=== PATIENT | female | born 1955 | race Caucasian/White ===

== ENCOUNTER 2022-08-30 19:51 | Emergency (ER) | payer MEDICARE, MEDICAID ==
[~2022-08-30] VITALS: Ht 173 cm; Wt 73.9 kg
[2022-08-30 19:55] VITALS: BP 218/99
--- NOTE | 2022-08-30 20:12 | ED General ---
General Chief Complaint: General Problems/Pain Stated Complaint: N/V/D Source of Information: Patient Exam Limitations: No Limitations History of Present Illness Date Seen by Provider: Aug 30, 2022 Time Seen by Provider: 20:00 Initial Comments 67-year-old female presents the emergency department today requesting refill of oxycodone 10 mg which she takes for chronic pain. She states she just moved to the area from [facility] and has not established care here yet. She last took her pain medicine this morning. Pain is chronic in her back and neck region for at least 5 years and unchanged. Allergies and Home Medications Patient Home Medication List Home Medication List Reviewed: Yes Review of Systems Review of Systems Constitutional: other (Chronic back and neck pain) EENTM: no symptoms reported Respiratory: no symptoms reported Cardiovascular: no symptoms reported Gastrointestinal: no symptoms reported Genitourinary: no symptoms reported Musculoskeletal: no symptoms reported Skin: no symptoms reported Psychiatric/Neurological: No Symptoms Reported Hematologic/Lymphatic: No Symptoms Reported Immunological/Allergic: no symptoms reported Past Cdenkjg-Nhnjlp-Ecbftv Hx Patient Social History Tobacco Use?: Yes Use of E-Cig and/or Vaping dev: No Substance use?: No Alcohol Use?: No Family Medical History Reviewed Nursing Family Hx No Pertinent Family Hx Physical Exam Vital Signs Vital Signs - First Documented 08/30/22 19:55 Temp 36.3 Pulse 108 Resp 16 B/P (MAP) 218/99 (138) Capillary Refill : Height, Weight, BMI Height: '" Weight: lbs. oz. kg; BMI Method: General Appearance: No Apparent Distress, WD/WN HEENT: PERRL/EOMI, Normal ENT Inspection, Pharynx Normal Neck: Full Range of Motion, Non Tender, Supple Respiratory: Chest Non Tender, Lungs Clear, Normal Breath Sounds, No Accessory Muscle Use, No Respiratory Distress Cardiovascular: Regular Rate, Rhythm, No Edema, No Gallop, No JVD, No Murmur, Normal Peripheral Pulses, Other (hypertension) Gastrointestinal: Normal Bowel Sounds, No Organomegaly, No Pulsatile Mass, Non Tender, Soft Extremity: Normal Capillary Refill, Normal Inspection, Non Tender, No Calf Tenderness Neurologic/Psychiatric: Alert, Oriented x3 Skin: Normal Color, Warm/Dry Progress/Results/Core Measures Suspected Sepsis SIRS Temperature: Pulse: Respiratory Rate: Blood Pressure / Mean: Results/Orders Vital Signs/I&O 08/30/22 19:55 Temp 36.3 Pulse 108 Resp 16 B/P (MAP) 218/99 (138) Capillary Refill : Departure Communication (Admissions) Patient is hemodynamically stable onset of hypertension. She states she has been taking losartan but missed the dose today. She does have an empty oxyco done bottle here last filled on 07/26/2022. Advised her mother willing to refill chronic pain medications from the emergency department. She seems okay with this mildly the room she starts yelling and slamming doors, cussing. Concern for drug-seeking behavior at this point. Advised her she would need to establish care with primary care provider and likely panel edge painter in the area for further refills of these medications and that we will be on able to do so from the emergency department. She states understanding. Impression Primary Impression: Chronic pain Qualified Codes: G89.29 - Other chronic pain Additional Impression: Drug-seeking behavior Disposition: HOME, SELF-CARE Condition: Stable Departure-Patient Inst. Add. Discharge Instructions: We are unable to refill your chronic pain medications from the emergency d epartment. I recommend you follow-up with the [facility]. If this is where you currently have your appointment I recommend you calling daily to see if they can get you in sooner or have any cancellations. Return to the emergency department for any severe concerns. Follow-up with your primary doctor for any nonemergent needs. All discharge instructions reviewed with patient and/or family. Voiced understanding. DENISE REYNOSO DO Aug 30, 2022 20:12
== END 2022-08-30 20:20 | disposition home or self-care (01) ==
LOC: ER FS 19:53
DX: G89.29 Other chronic pain (principal); Z76.0 Encounter for issue of repeat prescription; I10 Essential (primary) hypertension; T46.5X6A Underdosing of other antihypertensive drugs, initial encounter; Z91.138 Patient's unintentional underdosing of medication regimen for other reason; Z76.5 Malingerer [conscious simulation]
CPT/HCPCS: 99285

== ENCOUNTER 2022-09-09 17:46 | Emergency (ER) | payer MEDICAID, MEDICARE ==
[~2022-09-09] VITALS: Ht 172.7 cm; Wt 77.1 kg
--- NOTE | 2022-09-09 18:23 | Diagnostic Imaging Report ---
PROCEDURE: CT abdomen and pelvis without contrast. TECHNIQUE: Multiple contiguous axial images were obtained through the abdomen and pelvis without the use of intravenous contrast. Auto Exposure Controls were utilized during the CT exam to meet ALARA standards for radiation dose reduction. INDICATION: Right groin pain. COMPARISON: None. FINDINGS: The heart is unremarkable. The lung bases are clear. A cyst is seen in the mid left kidney measuring 2.9 cm. No hydronephrosis or renal calculi. The urinary bladder is nondistended. The liver, spleen, pancreas and adrenal glands have a normal noncontrast CT appearance. The gallbladder is surgically absent. There is no pathologically enlarged mesenteric or retroperitoneal adenopathy. The bowel loops are nondilated. Scattered diverticula are seen in the descending and sigmoid colon without evidence of acute diverticulitis. There is no free fluid or free air. No acute osseous abnormalities. Prior kyphoplasty changes are seen at T12. There is calcified aortic and iliac atherosclerotic plaque without aneurysm. Ureters and bladder are normal. There is no free air, loculated collection, or adenopathy in the pelvis. IMPRESSION: 1. No acute abnormalities in the abdomen and pelvis. No bowel obstruction, free fluid, or free air. 2. Scattered diverticula in the descending and sigmoid colon without evidence of acute diverticulitis. Dictated by: Dictated on workstation # [id number]
[2022-09-09] MEDS ORDERED: FAMOTIDINE 20MG/2ML IV (PEPCID) IVP ONE (18:30)
[2022-09-09] MEDS ORDERED: KETOROLAC 30 MG/ML VIAL IVP ONE (18:30)
[2022-09-09] MEDS ORDERED: ONDANSETRON 4 MG/2 ML (SDV) Z0FRAN IVP ONE (18:30)
[2022-09-09] MEDS ORDERED: NS IV 1000 ML 1,000 ML IV SCH (18:30)
[2022-09-09 18:45] LABS: BASOPHILS % (AUTO) 0 % (0-10); EOSINOPHILS # (AUTO) 0.1 10^3/uL (0.0-0.3); EOSINOPHILS % (AUTO) 1 % (0-10); HEMATOCRIT 44 % (35-52); HEMOGLOBIN 15.4 g/dL (11.5-16.0); LYMPHOCYTES # (AUTO) 3.9 10^3/uL (1.0-4.0); LYMPHOCYTES % (AUTO) 36 % (12-44); MEAN CORPUSCULAR HEMOGLOBIN 31 pg (25-34); MEAN CORPUSCULAR HGB CONC 35 g/dL (32-36); MEAN CORPUSCULAR VOLUME 87 fL (80-99); MEAN PLATELET VOLUME 10.4 fL (9.0-12.2); MONOCYTES # (AUTO) 0.7 10^3/uL (0.0-1.0); MONOCYTES % (AUTO) 7 % (0-12); NEUTROPHILS # (AUTO) 6.2 10^3/uL (1.8-7.8); NEUTROPHILS % (AUTO) 56 % (42-75); PLATELET COUNT 308 10^3/uL (130-400); WHITE BLOOD COUNT 11.1 10^3/uL (4.3-11.0)
[2022-09-09 18:46] LABS: COLOR,URINE YELLOW; GLUCOSE, URINE (UA) NEGATIVE (NEGATIVE); KETONES,URINE 1+ (NEGATIVE); LEUKOCYTE ESTERASE ,URINE NEGATIVE (NEGATIVE); NITRITE,URINE NEGATIVE (NEGATIVE); PROTEIN,URINE 1+ (NEGATIVE)
[2022-09-09 18:50] LABS: BACTERIA,URINE LARGE /HPF; BILIRUBIN,URINE 1+ (NEGATIVE); CLARITY,URINE CLOUDY; SQUAMOUS EPITHELIAL CELL,UR >50 /HPF
[2022-09-09 18:59] LABS: AMPHETAMINE SCREEN, URINE NEGATIVE (NEGATIVE); BARBITURATE SCREEN URINE NEGATIVE (NEGATIVE); BENZODIAZEPINES SCREEN URINE NEGATIVE (NEGATIVE); CANNABINOID SCREEN, URINE POSITIVE (NEGATIVE); COCAINE SCREEN URINE NEGATIVE (NEGATIVE); METHADONE STAT NEGATIVE (NEGATIVE); OPIATE SCREEN URINE NEGATIVE (NEGATIVE); OXYCODONE STAT NEGATIVE (NEGATIVE); PROPOXYPHENE STAT NEGATIVE (NEGATIVE); TRICYCLIC ANTIDEPRESSANTS SCRE NEGATIVE (NEGATIVE)
[2022-09-09 19:06] LABS: ALBUMIN 4.5 GM/DL (3.2-4.5); BILIRUBIN,TOTAL 0.6 MG/DL (0.1-1.0); CALCIUM 9.8 MG/DL (8.5-10.1); CREATININE SERUM 0.87 MG/DL (0.60-1.30); TOTAL PROTEIN 7.2 GM/DL (6.4-8.2)
--- NOTE | 2022-09-09 19:52 | ED Abdominal Pain ---
General Chief Complaint: Abdominal/GI Problems Stated Complaint: FEET/LEG PAIN,VOMITTING Nursing Triage Note: Patient reports she saw a paint and table edger in [place] for chronic back pain. She reports she recently moved here and ran out of her oxycodone prescription on August 27. She states she began having diarrhea, sweating, nausea, vomiting, and abdominal pain on August 28 and is still having these symptoms. She states she feel dehydrated and has not had any urine output for 12 hours. Source of Information: Patient Exam Limitations: No Limitations History of Present Illness Date Seen by Provider: Sep 09, 2022 Time Seen by Provider: 17:45 Initial Comments Patient is a 67-year-old female with neuropathy and chronic pain who states she is currently withdrawing from oxycodone after taking her last dose approximately 2 weeks ago. Patient reports nausea vomiting diarrhea sweating and abdominal cramping. She states the symptoms have gradually improved but she continues to feel dehydrated and lightheaded upon standing. She denies fever chills, sweats. She denies chest pain palpitations, shortness of breath or other cardiac equivalent. No hematemesis coffee-ground emesis melena hematochezia. No urinary frequency urgency or dysuria. Patient was able to establish with a PCP and has set up appointment in 2 weeks. She is also off all of her psychiatric medications. Denies drugs or alcohol with the exception of marijuana. Timing/Duration: Other Severity/Quality: Other Location: Other Radiation: Other Activities at Onset: Other Modifying Factors: Improves With Other Associated Symptoms: Other Allergies and Home Medications Allergies Coded Allergies: acetaminophen (Verified Allergy, Unknown, rash, 09/09/22) Patient Home Medication List Home Medication List Reviewed: Yes Review of Systems Review of Systems Constitutional: see HPI EENTM: See HPI Respiratory: See HPI Cardiovascular: See HPI Gastrointestinal: See HPI Genitourinary: See HPI Musculoskeletal: see HPI Skin: see HPI Psychiatric/Neurological: See HPI Endocrine: See HPI Hematologic/Lymphatic: See HPI All Other Systems Reviewed Negative Unless Noted: No Past Sbzxkjk-Pzgfar-Stkxep Hx Patient Social History Tobacco Use?: Yes Tobacco type used: Cigarettes Smoking Status: Current Everyday Smoker Substance use?: Yes Substance type: Marijuana Alcohol Use?: No Pt feels they are or have been: No Past Medical History Surgery/Hospitalization HX: TBI, back pain, COPD, HTN Family Medical History No Pertinent Family Hx Physical Exam Vital Signs Vital Signs - First Documented 09/09/22 17:49 Temp 36.8 Pulse 107 Resp 16 B/P (MAP) 133/67 (89) Pulse Ox 99 O2 Delivery Room Air Capillary Refill : Less Than 3 Seconds Height/Weight/BMI Height: '" Weight: lbs. oz. kg; 25.00 BMI Method: General Appearance: WD/WN, no apparent distress HEENT: PERRL/EOMI, normal ENT inspection Neck: non-tender, full range of motion Respiratory: lungs clear, normal breath sounds Cardiovascular: regular rate, rhythm Gastrointestinal: non tender, soft Extremities: normal range of motion, non-tender Back: normal inspection, no CVA tenderness Neurologic/Psychiatric: no motor/sensory deficits, alert, oriented x 3 Focused Exam Sepsis Stage: Ruled Out Progress/Results/Core Measures Results/Orders Lab Results Laboratory Tests Test 09/09/22 18:30 Range/Units White Blood Count 11.1 H 4.3-11.0 10^3/uL Red Blood Count 5.03 3.80-5.11 10^6/uL Hemoglobin 15.4 11.5-16.0 g/dL Hematocrit 44 35-52 % Mean Corpuscular Volume 87 80-99 fL Mean Corpuscular Hemoglobin 31 25-34 pg Mean Corpuscular Hemoglobin Concent 35 32-36 g/dL Red Cell Distribution Width 12.8 10.0-14.5 % Platelet Count 308 130-400 10^3/uL Mean Platelet Volume 10.4 9.0-12.2 fL Immature Granulocyte % (Auto) 0 % Neutrophils (%) (Auto) 56 42-75 % Lymphocytes (%) (Auto) 36 12-44 % Monocytes (%) (Auto) 7 0-12 % Eosinophils (%) (Auto) 1 0-10 % Basophils (%) (Auto) 0 0-10 % Neutrophils # (Auto) 6.2 1.8-7.8 10^3/uL Lymphocytes # (Auto) 3.9 1.0-4.0 10^3/uL Monocytes # (Auto) 0.7 0.0-1.0 10^3/uL Eosinophils # (Auto) 0.1 0.0-0.3 10^3/uL Basophils # (Auto) 0.0 0.0-0.1 10^3/uL Immature Granulocyte # (Auto) 0.0 0.0-0.1 10^3/uL Urine Color YELLOW Urine Clarity CLOUDY Urine pH 6.0 5-9 Urine Specific [place] >=1.030 1.016-1.022 Urine Protein 1+ H NEGATIVE Urine Glucose (UA) NEGATIVE NEGATIVE Urine Ketones 1+ H NEGATIVE Urine Nitrite NEGATIVE NEGATIVE Urine Bilirubin 1+ H NEGATIVE Urine Urobilinogen 0.2 < = 1.0 MG/DL Urine Leukocyte Esterase NEGATIVE NEGATIVE Urine RBC (Auto) NEGATIVE NEGATIVE Urine RBC 2-5 H /HPF Urine WBC 10-25 H /HPF Urine Squamous Epithelial Cells >50 H /HPF Urine Crystals NONE /LPF Urine Bacteria LARGE H /HPF Urine Casts NONE /LPF Urine Mucus NEGATIVE /LPF Urine Culture Indicated NO Sodium Level 145 135-145 MMOL/L Potassium Level 3.0 L 3.6-5.0 MMOL/L Chloride Level 102 98-107 MMOL/L Carbon Dioxide Level 29 21-32 MMOL/L Anion Gap 14 5-14 MMOL/L Blood Urea Nitrogen 15 7-18 MG/DL Creatinine 0.87 0.60-1.30 MG/DL Estimat Glomerular Filtration Rate 73 BUN/Creatinine Ratio 17 Glucose Level 134 H 70-105 MG/DL Calcium Level 9.8 8.5-10.1 MG/DL Corrected Calcium 9.4 8.5-10.1 MG/DL Total Bilirubin 0.6 0.1-1.0 MG/DL Aspartate Amino Transf (AST/SGOT) 14 5-34 U/L Alanine Aminotransferase (ALT/SGPT) 10 0-55 U/L Alkaline Phosphatase 62 40-136 U/L Total Protein 7.2 6.4-8.2 GM/DL Albumin 4.5 3.2-4.5 GM/DL Urine Opiates Screen NEGATIVE NEGATIVE Urine Oxycodone Screen NEGATIVE NEGATIVE Urine Methadone Screen NEGATIVE NEGATIVE Urine Propoxyphene Screen NEGATIVE NEGATIVE Urine Barbiturates Screen NEGATIVE NEGATIVE Ur Tricyclic Antidepressants Screen NEGATIVE NEGATIVE Urine Phencyclidine Screen NEGATIVE NEGATIVE Urine Amphetamines Screen NEGATIVE NEGATIVE Urine Methamphetamines Screen NEGATIVE NEGATIVE Urine Benzodiazepines Screen NEGATIVE NEGATIVE Urine Cocaine Screen NEGATIVE NEGATIVE Urine Cannabinoids Screen POSITIVE H NEGATIVE My Orders Orders - KEMAR LOMAX DO Ct Abdomen/Pelvis Wo (09/09/22 17:59) Cbc With Automated Diff (09/09/22 18:22) Comprehensive Metabolic Panel (09/09/22 18:22) Urinalysis (09/09/22 18:22) Drug Screen Stat (Urine) (09/09/22 18:22) Ns Iv 1000 Ml (Sodium Chloride 0.9%) (09/09/22 18:30) Ondansetron Injection (Zofran Injectio (09/09/22 18:30) Ketorolac Injection (Toradol Injection) (09/09/22 18:30) Famotidine Injection (Pepcid Injection) (09/09/22 18:30) Medications Given in ED Current Medications Medications Dose Ordered Sig/Alli Route Start Time Stop Time Status Last Admin Dose Admin Famotidine 20 mg ONCE ONCE IVP 09/09/22 18:30 09/09/22 18:31 DC 09/09/22 18:46 20 MG Ketorolac Tromethamine 30 mg ONCE ONCE IVP 09/09/22 18:30 09/09/22 18:31 DC 09/09/22 18:47 30 MG Ondansetron HCl 4 mg ONCE ONCE IVP 09/09/22 18:30 09/09/22 18:31 DC 09/09/22 18:47 4 MG Vital Signs/I&O 09/09/22 17:49 Temp 36.8 Pulse 107 Resp 16 B/P (MAP) 133/67 (89) Pulse Ox 99 O2 Delivery Room Air Blood Pressure Mean: 89 Departure Communication (Admissions) CT abdomen pelvis without contrast. No acute findings per radiology report. Nausea vomiting with nonspecific abdominal pain in the emergency department. CT lab performed and reassuring. Patient's GI symptoms most consistent with drug withdrawal. Patient manipulative on ED arrival stating that she will kill herself if she does not receive pain medication or is sent home. After explaining to the patient that she would not be given pain medication and then she became more cooperative, jovial and requested a hotel and states that she really needs a break from her son. Patient does have a history of depression and anxiety chronic pain. She is currently off her psychiatric medications. Patient does have PCP follow-up in place. Return precautions reviewed. Patient verbalizes understanding and agreement prior to discharge. Impression Primary Impression: Nausea and vomiting Additional Impressions: Abdominal pain Chronic pain Medication refill Disposition: 01 HOME, SELF-CARE Condition: Stable Departure-Patient Inst. Decision time for Depature: 19:53 Referrals: NO,LOCAL PHYSICIAN (PCP/Family) Primary Care Physician Patient Instructions: Chronic Pain, Nausea and Vomiting, Adult (DC), Abdominal Pain, Adult ED Add. Discharge Instructions: You were evaluated in the emergency department for abdominal pain with nausea and vomiting. Lab and imaging studies were performed and are nondiagnostic. The exact cause of your symptoms is not been determined but may be related to narcotic withdrawal. Please take newly prescribed medications as directed and resume Cymbalta. Use walker as needed to assist with neuropathy. Follow-up with your PCP as scheduled for further management. Return to the ED if new or concerning symptoms. All discharge instructions reviewed with patient and/or family. Voiced understanding. Scripts Cyclobenzaprine HCl (Cyclobenzaprine HCl) 10 Mg Tablet 10 MG PO TID, #30 TAB Prov: KEMAR LOMAX DO 09/09/22 Ondansetron (Ondansetron Odt) 4 Mg Tab.rapdis 4 MG SL Q4H PRN for NAUSEA/VOMITING, #10 TAB Prov: KEMAR LOMAX DO 09/09/22 Duloxetine HCl (Cymbalta) 60 Mg Capsule. 60 MG PO BID, #60 CAP Prov: KEMAR LOMAX DO 09/09/22 KEMAR LOMAX DO Sep 09, 2022 19:52
[2022-09-09] MEDS ORDERED: CYCL10TA25 PO (19:55)
[2022-09-09] MEDS ORDERED: ONDA4TAB11 SL (19:55)
[2022-09-09] MEDS ORDERED: DULO60CA7 PO (19:55)
[2022-09-09 20:03] VITALS: BP 178/102
[2022-09-09] MEDS ORDERED: RX-ONDANSETRON 4 MG ODT (ZOFRAN) PPK #4 PO STA (20:06)
[2022-09-09] MEDS ORDERED: RX-ONDANSETRON 4 MG ODT (ZOFRAN) PPK #4 ONE (20:07)
== END 2022-09-09 20:10 | disposition home or self-care (01) ==
LOC: EDUNIT# 17:46 → ER FS 17:47
DX: R11.2 Nausea with vomiting, unspecified (principal); R10.9 Unspecified abdominal pain; G89.29 Other chronic pain; F17.210 Nicotine dependence, cigarettes, uncomplicated; Z76.0 Encounter for issue of repeat prescription; Z91.14 Patient's other noncompliance with medication regimen
CPT/HCPCS: 36415; 51702; 74176; 80053; 80306; 81000; 85025; 96361; 96374; 96375